=== PATIENT | female | born 1990 | race Caucasian/White ===

== ENCOUNTER → 2016-10-23 | Outpatient (CLI) | payer OTHER | END | disposition home or self-care (01) | LOC: C.PAPS 12:03 | PROVIDERS: ATTEND Physician Assistant | DX: Z12.4 Encounter for screening for malignant neoplasm of cervix (principal) ==

== ENCOUNTER 2022-05-01 02:39 | Inpatient (IN) ==
[2022-05-01] MEDS ORDERED: LIDOCAINE 1% LOCAL 20 ML VIAL INFIL PRN (05:31)
[2022-05-01] MEDS ORDERED: OXYTOCIN 30 UNITS/500 ML BAG IV PRN ×3 (05:31→11:34)
[2022-05-01] MEDS ORDERED: ceFAZolin 2000MG 2,000 MG/15 ML SYR IV SCH (06:00)
[2022-05-01] MEDS: LACTATED RINGER'S 1,000 ML IV PRN ×3 (06:09→11:16)
[2022-05-01 06:26] LABS: Hematocrit (blood only) 33.5 % (34.1-44.9); Hemoglobin 11.6 g/dl (12.0-16.0); Mean Corpuscular Hemoglobin 28.8 pg (25.0-34.0); Mean Corpuscular Hgb Conc 34.6 g/dL (32.0-36.0); Mean Corpuscular Volume 83.1 fL (80.0-100.0); Platelet Count 314 K/uL (130-400); RDW Coefficient of Variation 12.5 % (11.5-14.5); RDW Standard Deviation 37.8 fL (36.4-46.3); Red Blood Count 4.03 M/uL (3.93-5.22); White Blood Count 16.29 K/ul (4.8-10.8)
[2022-05-01] MEDS ORDERED: ONDANSETRON INJ 2 MG/ML 2 ML VIAL IV PRN ×3 (06:41→13:45)
[2022-05-01] MEDS ORDERED: diphenhydrAMINE 50 MG/ML VIAL IV PRN ×2 (06:41→12:45)
[2022-05-01] MEDS ORDERED: ePHEDrine sulfate 50 MG/ML AMP IV PRN ×2 (06:41→12:45)
[2022-05-01] MEDS ORDERED: fentaNYL 2MCG/ML ROPIVACAINE 1.25MG/ML 100 ML BAG EPI PRN (06:41)
[2022-05-01] MEDS ORDERED: NALOXONE HCL 0.4 MG/1 ML VIAL/CARP IV PRN ×2 (06:41→12:45)
[2022-05-01] MEDS ORDERED: NALOXONE HCL 1 MG in SODIUM CHLORIDE 0.9% 1000ML 1,000 ML IV PRN ×2 (06:41→12:45)
[2022-05-01] MEDS ORDERED: NALBUPHINE HCL INJ 10 MG/ML AMP IV PRN ×2 (06:41→12:45)
--- NOTE | 2022-05-01 06:41 | Anesthesiology Consultation ---
Date of Service May 01, 2022 Assessment & Plan ASA ASA2 Proposed Anesthesia Anesthesia Type: Labor Epidural Risk / Benefits Reviewed With: PT / POA / Parent / Guardian, Accepts Plan and Informed Consent Obtained History Height/Weight Height: 5 ft 11 in Weight: 89.358 kg Allergies Allergy/AdvReac Type Severity Reaction Status Date / Time No Known Drug Allergies Allergy Verified 04/28/22 12:24 Medications Home Medications Medication Instructions Recorded Confirmed Last Taken prenat.vits,lilibeth,[id number] 1 tab PO DAILY 05/20/21 04/28/22 Unknown Active Medications Generic Name Dose Route Start Last Admin Trade Name Freq PRN Reason Stop Dose Admin Lactated Ringer's 1,000 mls @ 125 mls/hr 05/01/22 05:31 05/01/22 07:16 Lr IV 05/03/22 05:30 125 mls/hr .Q8H PRN Infusion L&D Protocol Protocol Past Medical History Medical History History of chicken pox No active medical problems Exercise / Class Metabolic Activity II 4-5 Yardwork/Stairs/Walk up hill Past Family History Family History Grandmother (Paternal) Myocardial infarction Grandfather (Paternal) Alzheimer disease Denies family history of Ovarian cancer Prostate cancer Breast cancer Colorectal cancer Uterine cancer Past Surgical History Surgical History No pertinent past surgical history Past Anesthesia History No Hx of Anesthesia Complications and No Family Hx of Anesthesia Complications History of PONV No Hx of PONV and No Hx of Motion Sickness Social History Smoking Status: Never smoker Hx Alcohol Use: No Alcohol type: beer and wine Hx Substance Use: No Review of Systems denies fever/cough/ colds/ chest pain/ SOB/ SID denies SID Physical Exam Vital Signs Last Vital Signs Temp 36.8 C 05/01/22 06:06 Pulse 95 H 05/01/22 07:15 Resp 18 05/01/22 06:06 BP 124/75 05/01/22 07:15 Pulse Ox 99 05/01/22 07:15 ENMT Mouth: no TMJ abnormality and no dentition abnormality Thyromental Distance: > or= 3.5 Finger Breadths Mallampati Class: II Neck neck extension not limited Respiratory normal respiratory effort; no respiratory distress Auscultation: lungs clear to auscultation bilaterally Cardiovascular Rate/Rhythm: regular rate and regular rhythm Neurologic moves all extremities Psychiatric Orientation: alert and oriented x 3 Testing Laboratory Results 05/01/22 05:52 05/01/22 05:52
[2022-05-01] MEDS ORDERED: ePHEDrine sulfate 50 MG/ML AMP ONE (06:43)
[2022-05-01] MEDS ORDERED: fentaNYL citrate 100 MCG/2 ML VIAL ONE ×2 (06:44→13:03)
[2022-05-01] MEDS ORDERED: SODIUM CHLORIDE 0.9% INJ 10 ML VIAL ONE (06:44)
[2022-05-01] MEDS ORDERED: LIDOCAINE 2%/EPINEPHRINE 1:200,000 20 ML SDV ONE ×2 (06:44→12:35)
[2022-05-01] MEDS ORDERED: BUPIVACAINE 0.25% 30 ML VIAL ONE (06:44)
[2022-05-01] MEDS ORDERED: fentaNYL 2MCG/ML ROPIVACAINE 1.25MG/ML 100 ML BAG EPI ONE (06:45)
--- NOTE | 2022-05-01 07:19 | History & Physical Report ---
Date of Service May 01, 2022 Assessment & Plan (1) Supervision of normal first : Plan: Admit to L&D. EFM/toco. Labs. OK for epidural. Admission and Anticipated Discharge Date Admission Date: May 01, 2022 History of Present Illness Primary Care Provider: Manuel Aguilera DO 31yo @ 38 09/09, presented with ctx. No leaking, no vaginal bleeding. + movement. uncomplicated. 36w EFW 81%ile. Allergies Allergy/AdvReac Type Severity Reaction Status Date / Time No Known Drug Allergies Allergy Verified 04/28/22 12:24 Home Medications Medication Instructions Recorded Confirmed Type prenat.vits,lilibeth,xfk-[id number]-ycjkx 1 tab PO DAILY 05/20/21 04/28/22 History Patient History Medical History History of chicken pox No active medical problems Surgical History No pertinent past surgical history Family History Grandmother (Paternal) Myocardial infarction Grandfather (Paternal) Alzheimer disease Denies family history of Ovarian cancer Prostate cancer Breast cancer Colorectal cancer Uterine cancer Social History (Updated 09/30/21 @ 13:07 by Rosmery Gregory) Smoking Status: Never smoker Second Hand Exposure: No; Hx Alcohol Use: No Hx Substance Use: No Preferred Language: Luxembourgish Communication Ability: Effective Visual Impairment: No Limitations Hearing Ability: Normal Mail Carriers Supervisor Required: No Beliefs That Will Affect Care: None marital status: marital status details: Sanjeev Bansal (36) [phone] Current Living Situation: Spouse Current Living Situation Comment: lives with spouse, dog current occupational status: employed 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 How many Children do You have: 0 Other Information That Helps Us Care for You: No Feels Safe at Home: Yes Safety Concerns: Feels Safe At This Time Childhood Exposure to Second-Hand Smoke: No caffeine: Yes (tea sometimes, coffee maybe once a week) Dental Care, Regularly: Yes Physical Activity Frequency: 5-6 Times per Week Physical Activity Frequency Comment: runs and at home workouts Seatbelt Use: always Sunscreen Use: Yes (sometimes) Review of Systems All systems reviewed & are unremarkable except as noted in HPI & below Physical Exam Physical Exam: FHT Cat 1 [place] Q 2 SVE 5/100/-1 per RN Constitutional: WD/WN, vitals as above Respiratory: normal respiratory effort, lungs clear to auscultation no respiratory distress Cardiovascular: Rate/Rhythm: regular rate and regular rhythm Gastrointestinal (Abdomen): Inspection/Auscultation: abdomen normal to inspec tion Percussion/Palpation: abdomen soft; abdomen nontender Gravid. No s/s chorio or abruption. Skin: no rashes, warm and dry Psychiatric: A+Ox3, euthymic affect Results & Data ([facility]) Vital Signs (Past 12 Hours) Vital Signs Temp Pulse Resp BP Pulse Ox 05/01/22 07:15 95 H 124/75 99 05/01/22 07:13 85 116/73 05/01/22 07:11 90 127/81 05/01/22 07:10 86 100 05/01/22 07:09 86 132/80 05/01/22 07:07 81 125/79 05/01/22 07:05 87 131/82 100 05/01/22 07:03 86 129/79 05/01/22 07:01 82 130/78 05/01/22 07:00 85 99 05/01/22 06:55 83 100 05/01/22 06:50 92 H 100 05/01/22 06:06 36.8 C 68 18 131/80 05/01/22 02:54 36.9 C 80 20 145/85 H Coding Level of Care Code None Diagnoses Supervision of normal first Z34.00
[2022-05-01 07:20] LABS: Albumin Globulin Ratio 1.2 (0.9-2); Albumin Level 3.6 gm/dl (3.4-5.0); BUN Creatinine Ratio 16.7 (10-20); Bilirubin,Total 0.4 mg/dl (0.2-1.0); Calcium 9.1 mg/dl (8.5-10.1); Creatinine Clr Calc Pharmacy 119.8 ml/min; Est GFR (African American) 107.3 ml/min; Est GFR (Non-African American) 92.6 ml/min; Globulin 3.1 gm/dl (2.5-4.0); Potassium 4.1 mmol/L (3.5-5.1); Total Protein 6.7 gm/dl (6.0-8.3)
[2022-05-01] MEDS ORDERED: TERBUTALINE SULFATE 1 MG/ML VIAL SQ ONE (09:31)
--- NOTE | 2022-05-01 09:35 | Labor Progress Brief Note ---
Date of Service May 01, 2022 Subjective Patient is comfortable with epidural Assessment & Plan (1) with 38 completed weeks gestation: (2) Normal labor: Plan dysfunctional labor pattern but getting the job done. Has had two five minute decels since epidural with resolution. fluid clear at this time with arom. Will continue to monitor closely, see what contractions do. Admission and Anticipated Discharge Date Admission Date: May 01, 2022 Physical Exam Physical Exam: cx--9/100/0 arom--clear Immediately after arom, decel to the 70s for five minutes. Position changed, oxygen, fluids and SQ terb given. This then eventually resolved to the 130s. Patient had a 5 minute decel at about 7:30 right after the epidural as well. Variability min to moderate. toco--very irregular contraction pattern. Has long spaces between and then runs of contractions. Think this decel was secondary to a run of tachysystole. resolved with terb. Results & Data ([facility]) Vital Signs (Past 12 Hours) Vital Signs Temp Pulse Resp BP Pulse Ox 05/01/22 09:28 100 H 138/87 05/01/22 09:27 98 H 92 05/01/22 09:25 81 100 05/01/22 09:20 92 H 100 05/01/22 09:18 81 94 05/01/22 09:15 68 100 05/01/22 09:10 71 100 05/01/22 09:07 64 123/69 05/01/22 09:05 66 100 05/01/22 09:00 72 100 05/01/22 08:55 80 100 05/01/22 08:52 70 119/68 05/01/22 08:50 73 100 05/01/22 08:45 72 100 05/01/22 08:40 69 100 05/01/22 08:37 68 118/70 05/01/22 08:35 71 100 05/01/22 08:30 68 100 05/01/22 08:25 73 100 05/01/22 08:24 75 121/74 05/01/22 08:23 70 119/72 05/01/22 08:20 70 100 05/01/22 08:15 81 100 05/01/22 08:10 65 100 05/01/22 08:08 69 121/69 05/01/22 08:05 67 100 05/01/22 08:00 74 100 10/27/22 07:55 70 100 05/01/22 07:52 71 120/69 05/01/22 07:50 78 100 05/01/22 07:45 74 100 05/01/22 07:40 73 100 05/01/22 07:38 72 125/73 05/01/22 07:35 76 100 05/01/22 07:30 89 128/85 100 05/01/22 07:25 103 H 100 05/01/22 07:20 89 100 05/01/22 07:21 87 118/79 05/01/22 07:15 95 H 124/75 99 05/01/22 07:13 85 116/73 05/01/22 07:11 90 127/81 05/01/22 07:10 86 100 05/01/22 07:09 86 132/80 05/01/22 07:07 81 125/79 05/01/22 07:05 87 131/82 100 05/01/22 07:03 86 129/79 05/01/22 07:01 82 130/78 05/01/22 07:00 85 99 05/01/22 06:55 83 100 05/01/22 06:50 92 H 100 05/01/22 06:06 36.8 C 68 18 131/80 05/01/22 02:54 36.9 C 80 20 145/85 H Coding Level of Care Code None Diagnoses with 38 completed weeks gestation Z3A.38 Normal labor O80; Z37.9
--- NOTE | 2022-05-01 11:34 | Labor Progress Brief Note ---
Date of Service May 01, 2022 Subjective comfortable Assessment & Plan (1) Normal labor: Plan contractions have spaced. no change or descent in last couple of hours. ctx are likely not adequate. discussed the following options 1. continued expectant management--see if contractions spontaneously become better, srom so every exam increases risk for infection, may or may not ever happen without augmentation 2. start pit--start low, go slow, see if baby tolerates and can get better contractions. discussed if baby does not tolerate, will likely need c/s. discussed potential of another decel and may not come up this time. 3. controlled c/s now--always an option if concerned about tolerance, discussed if has decel and does not come up, might need stat c/s with general Discussed there has been no descent in station. May be because ctx not powerful enough or because baby won't fit through. Decels might be secondary to cpd, however, I think the last one from tachy systoleDid discuss that even if we get to 10cm, baby may not tolerate pushing resulting in c/s anyway. Just cannot know what will ultimately happen. Discussed the r/b of all. thought we did not need to do c/s at this point unless they wished to proceed with that. They have chosen pitocin. Admission and Anticipated Discharge Date Admission Date: May 01, 2022 Physical Exam Physical Exam: cx--essentially unchanged toco--q 2-5min efm--130s with mod variablity, accels present, no decels Results & Data ([facility]) Vital Signs (Past 12 Hours) Vital Signs Temp Pulse Resp BP Pulse Ox 05/01/22 11:25 88 100 05/01/22 11:22 83 133/76 05/01/22 11:20 89 100 05/01/22 11:18 84 92 05/01/22 11:15 80 100 05/01/22 11:10 83 100 05/01/22 11:07 88 129/79 05/01/22 11:05 81 97 05/01/22 11:00 37.1 C 84 20 100 05/01/22 10:58 81 92 05/01/22 10:55 81 100 05/01/22 10:52 84 119/69 05/01/22 10:50 84 100 05/01/22 10:45 87 100 05/01/22 10:40 86 100 05/01/22 10:38 85 117/69 05/01/22 10:35 84 100 05/01/22 10:30 76 100 05/01/22 10:25 87 100 05/01/22 10:22 89 116/64 05/01/22 10:20 93 H 100 05/01/22 10:18 91 H 92 05/01/22 10:15 91 H 100 05/01/22 10:10 88 100 05/01/22 10:07 89 125/68 05/01/22 10:05 87 100 05/01/22 10:00 85 100 05/01/22 09:55 91 H 100 05/01/22 09:52 90 124/63 05/01/22 09:50 98 H 100 05/01/22 09:45 91 H 100 05/01/22 09:40 37.0 C 92 H 20 100 05/01/22 09:38 90 133/84 05/01/22 09:35 85 100 05/01/22 09:30 88 100 05/01/22 09:28 100 H 138/87 05/01/22 09:27 98 H 92 05/01/22 09:25 81 100 05/01/22 09:20 92 H 100 05/01/22 09:18 81 94 05/01/22 09:15 68 100 05/01/22 09:10 71 100 05/01/22 09:07 64 123/69 05/01/22 09:05 66 100 05/01/22 09:00 72 100 05/01/22 08:55 80 100 05/01/22 08:52 70 119/68 05/01/22 08:50 73 100 05/01/22 08:45 72 100 05/01/22 08:40 69 100 05/01/22 08:37 68 118/70 05/01/22 08:35 71 100 05/01/22 08:30 68 100 05/01/22 08:25 73 100 05/01/22 08:24 75 121/74 05/01/22 08:23 70 119/72 05/01/22 08:20 70 100 05/01/22 08:15 81 100 05/01/22 08:10 65 100 05/01/22 08:08 69 121/69 05/01/22 08:05 67 100 05/01/22 08:00 74 100 05/01/22 07:55 70 100 05/01/22 07:52 71 120/69 05/01/22 07:50 78 100 05/01/22 07:45 74 100 05/01/22 07:40 73 100 05/01/22 07:38 72 125/73 05/01/22 07:35 76 100 05/01/22 07:30 89 128/85 100 05/01/22 07:25 103 H 100 05/01/22 07:20 89 100 05/01/22 07:21 87 118/79 05/01/22 07:15 95 H 124/75 99 05/01/22 07:13 85 116/73 05/01/22 07:11 90 127/81 05/01/22 07:10 86 100 05/01/22 07:09 86 132/80 05/01/22 07:07 81 125/79 05/01/22 07:05 87 131/82 100 05/01/22 07:03 86 129/79 05/01/22 07:01 82 130/78 05/01/22 07:00 85 99 05/01/22 06:55 83 100 05/01/22 06:50 92 H 100 05/01/22 06:06 36.8 C 68 18 131/80 05/01/22 02:54 36.9 C 80 20 145/85 H Coding Level of Care Code None Diagnoses Normal labor O80; Z37.9
--- NOTE | 2022-05-01 12:22 | Labor Progress Brief Note ---
Date of Service May 01, 2022 Subjective comfortable with epidural, some pressure Assessment & Plan (1) Normal labor: Plan Again discussed the situation. To get a more regular contraction pattern, would need to increase the pitocin but risking continued decels with doing that. Discussed one of these times may not come back up necessitating a stat c/s. They have decided to proceed with c/s. r/b/se of surgery discussed. consent reviewed and signed. Admission and Anticipated Discharge Date Admission Date: May 01, 2022 Physical Exam Physical Exam: cx--unchanged toco--continued dysfunctional pattern. had another run of 4 contractions right on top of one another and had a decel efm--had been 140s with mod variability, +accels, +scalp stim. decel lasted 3-4 minutes this time. recovered to 150s Results & Data ([facility]) Vital Signs (Past 12 Hours) Vital Signs Temp Pulse Resp BP Pulse Ox 05/01/22 12:15 85 100 05/01/22 12:10 88 100 05/01/22 12:08 89 130/77 05/01/22 12:05 82 100 05/01/22 12:04 91 H 93 05/01/22 12:00 92 H 100 05/01/22 11:55 90 92 05/01/22 11:52 89 128/76 05/01/22 11:50 91 H 100 05/01/22 11:45 81 100 05/01/22 11:40 84 100 05/01/22 11:37 82 125/77 05/01/22 11:35 83 100 05/01/22 11:30 84 100 05/01/22 11:25 88 100 05/01/22 11:22 83 133/76 05/01/22 11:20 89 100 05/01/22 11:18 84 92 05/01/22 11:15 80 100 05/01/22 11:10 83 100 05/01/22 11:07 88 129/79 05/01/22 11:05 81 97 05/01/22 11:00 37.1 C 84 20 100 05/01/22 10:58 81 92 05/01/22 10:55 81 100 05/01/22 10:52 84 119/69 05/01/22 10:50 84 100 05/01/22 10:45 87 100 05/01/22 10:40 86 100 10/27/22 10:38 85 117/69 05/01/22 10:35 84 100 05/01/22 10:30 76 100 05/01/22 10:25 87 100 05/01/22 10:22 89 116/64 05/01/22 10:20 93 H 100 05/01/22 10:18 91 H 92 05/01/22 10:15 91 H 100 05/01/22 10:10 88 100 05/01/22 10:07 89 125/68 05/01/22 10:05 87 100 05/01/22 10:00 85 100 05/01/22 09:55 91 H 100 05/01/22 09:52 90 124/63 05/01/22 09:50 98 H 100 05/01/22 09:45 91 H 100 05/01/22 09:40 37.0 C 92 H 20 100 05/01/22 09:38 90 133/84 05/01/22 09:35 85 100 05/01/22 09:30 88 100 05/01/22 09:28 100 H 138/87 05/01/22 09:27 98 H 92 05/01/22 09:25 81 100 05/01/22 09:20 92 H 100 05/01/22 09:18 81 94 05/01/22 09:15 68 100 05/01/22 09:10 71 100 05/01/22 09:07 64 123/69 05/01/22 09:05 66 100 05/01/22 09:00 72 100 05/01/22 08:55 80 100 05/01/22 08:52 70 119/68 05/01/22 08:50 73 100 05/01/22 08:45 72 100 05/01/22 08:40 69 100 05/01/22 08:37 68 118/70 05/01/22 08:35 71 100 05/01/22 08:30 68 100 05/01/22 08:25 73 100 05/01/22 08:24 75 121/74 05/01/22 08:23 70 119/72 05/01/22 08:20 70 100 05/01/22 08:15 81 100 05/01/22 08:10 65 100 05/01/22 08:08 69 121/69 05/01/22 08:05 67 100 05/01/22 08:00 74 100 05/01/22 07:55 70 100 05/01/22 07:52 71 120/69 05/01/22 07:50 78 100 05/01/22 07:45 74 100 05/01/22 07:40 73 100 05/01/22 07:38 72 125/73 05/01/22 07:35 76 100 05/01/22 07:30 89 128/85 100 05/01/22 07:25 103 H 100 05/01/22 07:20 89 100 05/01/22 07:21 87 118/79 05/01/22 07:15 95 H 124/75 99 05/01/22 07:13 85 116/73 05/01/22 07:11 90 127/81 05/01/22 07:10 86 100 05/01/22 07:09 86 132/80 05/01/22 07:07 81 125/79 05/01/22 07:05 87 131/82 100 05/01/22 07:03 86 129/79 05/01/22 07:01 82 130/78 05/01/22 07:00 85 99 05/01/22 06:55 83 100 05/01/22 06:50 92 H 100 05/01/22 06:06 36.8 C 68 18 131/80 05/01/22 02:54 36.9 C 80 20 145/85 H Coding Level of Care Code None Diagnoses Normal labor O80; Z37.9
[2022-05-01] MEDS ORDERED: CITRIC ACID/SODIUM CITRATE 15 ML UDC ONE (12:30)
[2022-05-01] MEDS ORDERED: MoRPHine SULFATE PF 1 MG/ML 10 ML AMP/VIAL ONE (12:35)
[2022-05-01] MEDS ORDERED: OXYTOCIN 10 UNITS/ML 10ML VIAL ONE ×3 (12:36)
[2022-05-01] MEDS ORDERED: NO NARCOTICS OR SEDATIVES SCH (12:45)
[2022-05-01] MEDS ORDERED: LACTATED RINGER'S 500 ML IV PRN (12:45)
[2022-05-01] MEDS ORDERED: MoRPHine SULFATE 2 MG/ML CARP IV PRN (12:45)
[2022-05-01] MEDS ORDERED: NALOXONE HCL 0.08 MG in SYRINGE 1.8 ML IV PRN (12:45)
[2022-05-01] MEDS ORDERED: DC INTRASPINAL MORPHINE SCH (12:45)
[2022-05-01] MEDS ORDERED: SODIUM CHLORIDE 0.9% 1000ML 1,000 ML IV SCH (12:45)
[2022-05-01] MEDS ORDERED: MoRPHine SULFATE PF 1 MG/ML 10 ML AMP/VIAL EPI ONE (13:15)
[2022-05-01] MEDS ORDERED: DIPHTHERIA/TETANUS/PERTUSSIS 0.5 ML SYR/VIAL IM ONE (13:45)
[2022-05-01] MEDS ORDERED: HYDROCORTISONE ACETATE 25 MG SUPP PR PRN (13:45)
[2022-05-01] MEDS ORDERED: SENNA 8.6 MG TAB PO PRN (13:45)
[2022-05-01] MEDS ORDERED: BENZOCAINE 20% AER SPR 82.5 GM CAN EXT PRN (13:45)
[2022-05-01] MEDS ORDERED: MAGNESIUM HYDROXIDE SUSP 30 ML UDC PO PRN (13:45)
[2022-05-01] MEDS ORDERED: LACTATED RINGER'S 1,000 ML IV SCH (13:45)
[2022-05-01 13:50] LABS: Base Excess Cord Venous Blood -4.8 mEq/L (-7.7-1.9); Cord Venous Blood HCO3 24 mmol/L (18.4-26.8); Cord Venous Blood PCO2 56 mmHg (30.4-57.2); Cord Venous Blood PO2 12 mmHg (14.1-43.3); Cord Venous Blood pH 7.23 (7.20-7.44); O2 Saturation Cord Venous Bld < 60.0 % (<68)
[2022-05-01 13:51] LABS: CO2 Cord Arterial Blood 69 mmHg (39.1-73.5); HCO3 Cord Arterial Blood 26 mmol/L (19.7-28.5); Oxygen Sat Cord Arterial Blood < 60.0 % (<60); PO2 Cord Arterial Blood 9 mmHg (4.1-31.7); pH Cord Arterial Blood 7.18 (7.1-7.38)
--- NOTE | 2022-05-01 13:53 | Operative Report ---
PG Post Operative Report Pre & Post Diagnosis Operation Date: 05/01/22 13:00 Pre-Op Diagnosis: IUP at 38 4/7 weeks, Failure to progress; non reassuring heart rate; 38 weeks gestation Post-Op Diagnosis: IUP at 38 4/7 weeks, Failure to progress; non reassuring heart rate; 38 weeks gestation I identified the patient and participated in the time-out.: Yes Procedure Operation Date: 05/01/22 13:00 Actual Procedures p Primary low transverse Section in LD living male child at 1313 - Karely Johnson MD, FACOG Surgeon Karely Johnson MD, FACOG Welding Supervisor Eliezer Rojas Estimated Blood Loss 550 Findings Consistent with Post-Op Diagnosis viable male infant in cephalic position, oa, very molded. [id number]. uterus, tubes, ovaries normal bilaterally Fluids 800cc Specimens none Drains logan Anesthesia Type Labor Epidural Complications none Disposition Accompanied Patient To Recovery: Yes Disposition: L&D Indications Patient is a 31yowf with iup at 38 4/7 weeks who presented to labor and delivery in labor. She progressed in labor and at 7cm received epidural. AT 9cm had arom for clear fluid. Patient never had a good contraction pattern and infact had several runs of tachysystole that induced decelerations, all of which recovered with recussictation. However, she never progressed beyond 9cm and we were not able to use pitocin for augmentation because of response. Description of Procedure The patient was taken to the operating room where she was identified verbally and by bracelet. She was placed on the operating table where her epidural anesthetic was dosed by anesthesia. She was then placed in the supine position with a leftward tilt. A Logan catheter had been placed sterilely. the patient was prepped and draped in a normal standard fashion. the anesthetic was tested and found to be adequate. A time-out was held, identifying correct patient, procedure, positioning and preoperative antibiotics. There were no concerns. A Pfannenstiel skin incision was made with a knife and taken down to the underlying layer of fascia with the knife and Bovie electrocautery. Bleeding was attended to with the Bovie. The fascia was incised in the midline with the knife and taken out laterally with scissors. The superior edge of the fascial incision was grasped, elevated and the underlying layer of rectus muscle was taken off bluntly and with scissors. In a similar fashion, the inferior edge of the fascial incision was grasped, elevated and the underlying layer of rectus muscle was taken off bluntly and with scissors. The muscles were bluntly in the midline. The peritoneum was entered bluntly. The incision was then stretched. The bladder blade was placed. The vesicouterine peritoneum was identified, entered with scissors and taken out laterally with scissors. The bladder flap was created digitally A hysterotomy incision was scored with a knife and the incision was stretched superiorly and inferiorly with the labor operator's fingers. The operators hand was placed into the incision and the head was delivered atraumatically. No nuchal cord. The nose and mouth were bulb suctioned. the rest of the infant was then delivered without difficulty. The nose and mouth were again bulb suctioned. The cord was clamped and cut and the infant was then handed off to the awaiting heel sorter for drying and attention. Cord blood and segment were obtained. The placenta was Manually extracted. The uterus was exteriorized and cleared of all clot and debris with moistened laparotomy sponges. The hysterotomy incision was repaired in two layers, the first in a running locked layer, the second in an imbricating layer. Hemostasis was noted to be good. Posterior cul-de-sac was irrigated and cleared of all clot and debris. The hysterotomy incision was again inspected and found to be hemostatic. the uterus was reinteriorized. Hysterotomy incision was again inspected and found to be hemostatic. Rectus muscles were reapproximated with several interrupted stitches of 0 Vicryl. The fascia was then reapproximated with 0 Vicryl starting at the edges and meeting in the midline. The subcuticular tissues were copiously irrigated and bleeding was attended to with cautery. The skin was then closed with 4-0 Vicryl in a subcuticular fashion. All sponge, lap and needle counts were correct x 2. The patient tolerated the procedure well and was taken to the recovery room in stable condition. I attest to the content of the Intraoperative Record and any orders documented therein. Any exceptions are noted below. OB Procedure Charges 79323
--- NOTE | 2022-05-01 14:23 | Anesthesiology Progress Note ---
Date of Service May 01, 2022 Anesthesia Post Procedure Vital Signs Vital Signs: Temp Pulse Resp BP Pulse Ox 05/01/22 14:15 18 05/01/22 14:05 20 05/01/22 13:55 20 05/01/22 13:45 37.0 C 20 05/01/22 14:20 99 H 99 05/01/22 14:17 103 H 125/80 05/01/22 14:15 103 H 99 05/01/22 14:10 95 H 99 05/01/22 14:07 99 H 113/65 05/01/22 14:05 94 H 98 05/01/22 14:00 98 H 97 05/01/22 13:58 121 H 120/79 05/01/22 13:55 89 96 05/01/22 13:53 93 H 131/71 05/01/22 13:50 98 H 98 05/01/22 13:46 200 H 191/133 H 05/01/22 13:45 102 H 98 05/01/22 12:46 100 05/01/22 12:46 86 05/01/22 12:46 79 93 05/01/22 12:41 79 100 05/01/22 12:36 90 100 05/01/22 12:37 75 128/74 05/01/22 12:30 87 100 05/01/22 12:25 78 100 05/01/22 12:23 82 128/81 05/01/22 12:20 87 100 05/01/22 12:19 95 H 90 05/01/22 12:15 85 100 05/01/22 12:10 88 100 05/01/22 12:08 89 130/77 05/01/22 12:05 82 100 05/01/22 12:04 91 H 93 05/01/22 12:00 92 H 100 05/01/22 11:55 90 92 05/01/22 11:52 89 128/76 05/01/22 11:50 91 H 100 05/01/22 11:45 81 100 05/01/22 11:40 84 100 05/01/22 11:37 82 125/77 05/01/22 11:35 83 100 05/01/22 11:30 84 100 05/01/22 11:25 88 100 05/01/22 11:22 83 133/76 05/01/22 11:20 89 100 05/01/22 11:18 84 92 05/01/22 11:15 80 100 05/01/22 11:10 83 100 05/01/22 11:07 88 129/79 05/01/22 11:05 81 97 05/01/22 11:00 37.1 C 84 20 100 05/01/22 10:58 81 92 05/01/22 10:55 81 100 05/01/22 10:52 84 119/69 05/01/22 10:50 84 100 05/01/22 10:45 87 100 05/01/22 10:40 86 100 05/01/22 10:38 85 117/69 05/01/22 10:35 84 100 05/01/22 10:30 76 100 05/01/22 10:25 87 100 05/01/22 10:22 89 116/64 05/01/22 10:20 93 H 100 05/01/22 10:18 91 H 92 05/01/22 10:15 91 H 100 05/01/22 10:10 88 100 05/01/22 10:07 89 125/68 05/01/22 10:05 87 100 05/01/22 10:00 85 100 05/01/22 09:55 91 H 100 05/01/22 09:52 90 124/63 05/01/22 09:50 98 H 100 05/01/22 09:45 91 H 100 05/01/22 09:40 37.0 C 92 H 20 100 05/01/22 09:38 90 133/84 05/01/22 09:35 85 100 05/01/22 09:30 88 100 05/01/22 09:28 100 H 138/87 05/01/22 09:27 98 H 92 05/01/22 09:25 81 100 05/01/22 09:20 92 H 100 05/01/22 09:18 81 94 05/01/22 09:15 68 100 05/01/22 09:10 71 100 05/01/22 09:07 64 123/69 05/01/22 09:05 66 100 05/01/22 09:00 72 100 05/01/22 08:55 80 100 05/01/22 08:52 70 119/68 05/01/22 08:50 73 100 05/01/22 08:45 72 100 05/01/22 08:40 69 100 05/01/22 08:37 68 118/70 05/01/22 08:35 71 100 05/01/22 08:30 68 100 05/01/22 08:25 73 100 05/01/22 08:24 75 121/74 05/01/22 08:23 70 119/72 05/01/22 08:20 70 100 05/01/22 08:15 81 100 05/01/22 08:10 65 100 05/01/22 08:08 69 121/69 05/01/22 08:05 67 100 05/01/22 08:00 74 100 05/01/22 07:55 70 100 05/01/22 07:52 71 120/69 05/01/22 07:50 78 100 05/01/22 07:45 74 100 05/01/22 07:40 73 100 05/01/22 07:38 72 125/73 05/01/22 07:35 76 100 05/01/22 07:30 89 128/85 100 05/01/22 07:25 103 H 100 05/01/22 07:20 89 100 05/01/22 07:21 87 118/79 05/01/22 07:15 95 H 124/75 99 05/01/22 07:13 85 116/73 05/01/22 07:11 90 127/81 05/01/22 07:10 86 100 05/01/22 07:09 86 132/80 05/01/22 07:07 81 125/79 05/01/22 07:05 87 131/82 100 05/01/22 07:03 86 129/79 05/01/22 07:01 82 130/78 05/01/22 07:00 85 99 05/01/22 06:55 83 100 05/01/22 06:50 92 H 100 05/01/22 06:06 36.8 C 68 18 131/80 05/01/22 02:54 36.9 C 80 20 145/85 H Transfer of Care Handoff Completed per policy Notes Mental Status: alert / awake / arousable and participated in evaluation Patient Amnestic to Procedure: Yes Nausea / Vomiting: adequately controlled Pain: adequately controlled Airway Patency, RR, SpO2: stable & adequate BP & HR: stable & adequate Hydration State: stable & adequate Anesthetic Complications: no major complications apparent and Pt Satisfied with anesthetic care
--- NOTE | 2022-05-01 14:24 | Anesthesia Procedure Note ---
Date of Service May 01, 2022 Anesthesia Post Epidural Note Vital Signs Vital Signs: Temp Pulse Resp BP Pulse Ox 37.0 C 99 H 18 125/80 99 05/01/22 13:45 05/01/22 14:20 05/01/22 14:15 05/01/22 14:17 05/01/22 14:20 Notes Mental Status: alert / awake / arousable and participated in evaluation Nausea / Vomiting: adequately controlled Pain: adequately controlled Airway Patency, RR, SpO2: stable & adequate BP & HR: stable & adequate Hydration State: stable & adequate Neuraxial Anesthesia: was administered and sensory block resolved Anesthetic Complications: no major complications apparent and Pt Satisfied with anesthetic care Epidural: Removed without complications and With tip intact
[2022-05-01] MEDS: OXYTOCIN 20 UNITS in LACTATED RINGER'S 1,000 ML IV SCH ×2 (15:09→23:50)
[2022-05-01] MEDS: KETOROLAC 30 MG/ML VIAL IV PRN (15:42)
[2022-05-01] MEDS: SIMETHICONE 80 MG CHEW PO SCH ×2 (17:04→20:39)
[2022-05-01] MEDS: DOCUSATE SODIUM 100 MG CAP PO SCH (20:39)
[2022-05-02] MEDS: KETOROLAC 30 MG/ML VIAL IV PRN (05:24)
[2022-05-02] MEDS ORDERED: CITRIC ACID/SODIUM CITRATE 15 ML UDC PO SCH (06:00)
[2022-05-02] MEDS ORDERED: ceFAZolin 2000MG 2,000 MG/15 ML SYR IV SCH (06:00)
--- NOTE | 2022-05-02 06:02 | Obstetrical Progress Note ---
Date of Service <Betina Tee - Last Filed: 05/02/22 06:59> May 02, 2022 Assessment & Plan <Betina Tee DO - Last Filed: 05/02/22 06:59> (1) Status post section: plan for d/c Arredondo, do a trial of OOB and ambulation and then progress diet as tolerated <Karely Johnson MD, FACOG - Last Filed: 05/02/22 07:04> (1) Status post section: Subjective <Betina Tee - Last Filed: 05/02/22 06:59> Nikki is a 31 y/o female who is POD #1 following delivery at 38 3/7 weeks. She reports feeling well overall this morning. Mild abdominal cramping,pain well managed on analgesics. Arredondo is still in place. Was a little nausea overnight, has improved this morning. Has not been out of bed yet. Is passing gas, no bowel movement. Has some persistent lochia with some improvement this morning. Currently . Review of Systems Denies fever, chills, sweats Denies shortness of breath, difficulty breathing, chest pain, palpitations, chest pressure. Denies breast pain. Denies dysuria. Denies headache or changes in vision. Physical Exam <Betina Tee - Last Filed: 05/02/22 06:59> General: Alert, oriented. No acute distress. Cardiac: Regular rate and rhythm, no murmurs/rubs/gallops. Respiratory: Clear to auscultation bilaterally a/p, no wheezes/rales/rhonchi. No increased work of breathing. Symmetrical chest rise. No respiratory distress. Abdomen: Soft, nontender, nondistended. Uterus: Uterine fundus firm, palpable 2 cm below umbilicus. Surgical dressing in place, clean and dry. Lower Extremities: No lower extremity edema or swelling. No deep calf pain. Ibrahima's negative bilaterally. Results & Data ([facility]) <Betina Tee - Last Filed: 05/02/22 06:59> Vital Signs (Past 12 Hours) Vital Signs Temp Pulse Resp BP Pulse Ox O2 Del Method 05/02/22 04:00 18 97 05/02/22 00:00 36.6 C 67 16 108/71 97 Room Air 05/02/22 03:05 16 99 05/02/22 02:00 16 99 05/02/22 01:00 16 98 05/02/22 00:00 18 98 05/01/22 23:00 16 97 05/01/22 22:10 16 99 05/01/22 21:00 16 99 05/01/22 20:00 16 98 05/01/22 19:15 16 96 05/01/22 19:19 36.9 C 72 18 116/71 98 Room Air 05/01/22 18:19 16 99 <Karely Johnson MD, FACOG - Last Filed: 05/02/22 07:04> Co-Signing Physician Notes Resident Physician Supervision Note: I interviewed and examined the patient. Discussed with Dr. Tee and agree with findings and plan as documented in the note. Any exceptions or clarifications are listed here: Doing well. Routine pod #1 care. Documented By: Karely Johnson MD, FACOG Resident Activity Tracking <Betina Tee, - Last Filed: 05/02/22 06:59> Resident Involvement: Resident Care Provided Care Provided: OB Delivery (Post )
[2022-05-02] MEDS ORDERED: MEPERIDINE HCL 50 MG/ML CARP IV PRN (06:45)
[2022-05-02] MEDS ORDERED: KETOROLAC 30 MG/ML VIAL IV PRN (06:45)
[2022-05-02] MEDS ORDERED: diphenhydrAMINE Capsule 25 MG CAP PO PRN (06:45)
[2022-05-02] MEDS ORDERED: diphenhydrAMINE 50 MG/ML VIAL IV PRN (06:45)
[2022-05-02] MEDS ORDERED: oxyCODONE/ACETAMINOPHEN 5mg/325mg TAB PO PRN (06:45)
[2022-05-02] MEDS ORDERED: PROMETHAZINE HCL 25 MG in SODIUM CHLORIDE 0.9% 50 ML IV PRN (06:45)
[2022-05-02 07:47] LABS: Basophils # (auto) 0.03 K/uL (0-0.2); Basophils % (auto) 0.2 %; Eosinophils # (auto) 0.05 K/uL (0-0.50); Eosinophils % (auto) 0.4 %; Hematocrit (blood only) 29.4 % (34.1-44.9); Hemoglobin 9.9 g/dl (12.0-16.0); Immature Granulocytes # (auto) 0.05 K/uL (0.00-0.02); Immature Granulocytes % (auto) 0.4 %; Lymphocytes # (auto) 1.42 K/uL (1.2-3.4); Lymphocytes % (auto) 10.5 %; Mean Corpuscular Hemoglobin 28.8 pg (25.0-34.0); Mean Corpuscular Hgb Conc 33.7 g/dL (32.0-36.0); Mean Corpuscular Volume 85.5 fL (80.0-100.0); Mean Platelet Volume 11.8 fL (9.4-12.3); Monocytes # (auto) 0.75 K/uL (0.24-0.82); Monocytes % (auto) 5.5 %; Neutrophils # (auto) 11.24 K/uL (1.4-6.5); Platelet Count 224 K/uL (130-400); RDW Coefficient of Variation 12.8 % (11.5-14.5); RDW Standard Deviation 39.2 fL (36.4-46.3); Red Blood Count 3.44 M/uL (3.93-5.22); White Blood Count 13.54 K/ul (4.8-10.8)
[2022-05-02] MEDS: FERROUS SULFATE 325 MG TAB PO SCH (08:30)
[2022-05-02] MEDS: DOCUSATE SODIUM 100 MG CAP PO SCH ×2 (08:30→21:45)
[2022-05-02] MEDS: SIMETHICONE 80 MG CHEW PO SCH ×4 (08:30→21:45)
[2022-05-02] MEDS: PRENATAL VITAMIN 1 TAB PO SCH (08:30)
[2022-05-02] MEDS: IBUPROFEN 600 MG TAB PO PRN ×4 (09:36→21:46)
[2022-05-02] MEDS ORDERED: bisacodyL 5 MG TABEC PO SCH (20:00)
[2022-05-03] MEDS: IBUPROFEN 600 MG TAB PO PRN ×3 (04:38→21:01)
--- NOTE | 2022-05-03 05:51 | Obstetrical Progress Note ---
Date of Service <Betina Tee - Last Filed: 05/03/22 06:21> May 03, 2022 Assessment & Plan <Betina Tee - Last Filed: 05/03/22 06:21> (1) Status post section: Arredondo is out, continue OOB and ambulation and progress diet as tolerated <Coby Espinoza MD, FACOG - Last Filed: 05/03/22 07:58> (1) Status post section: Day #:: 2 Subjective <Betina Tee - Last Filed: 05/03/22 06:21> Nikki is a 31 y/o female who is POD #2 following delivery at 38 3/7 weeks. She reports feeling well overall this morning. Mild abdominal cramping,pain well managed on analgesics. Arredondo is out and she is voiding. Tolerating regular diet. Has been able to ambulate. Is passing gas, no bowel movement. Has some persistent lochia with some improvement this morning. Currently . Review of Systems Denies fever, chills, sweats Denies shortness of breath, difficulty breathing, chest pain, palpitations, chest pressure. Denies breast pain. Denies dysuria. Denies headache or changes in vision. Physical Exam <Betina Tee - Last Filed: 05/03/22 06:21> General: Alert, oriented. No acute distress. Cardiac: Regular rate and rhythm, no murmurs/rubs/gallops. Respiratory: Clear to auscultation bilaterally a/p, no wheezes/rales/rhonchi. No increased work of breathing. Symmetrical chest rise. No respiratory distress. Abdomen: Soft, nontender, nondistended. Uterus: Uterine fundus firm, palpable 2 cm below umbilicus. Surgical dressing in place, clean and dry. Lower Extremities: No lower extremity edema or swelling. No deep calf pain. Ibrahima's negative bilaterally. Results & Data ([facility]) <Betina Tee - Last Filed: 05/03/22 06:21> Vital Signs (Past 12 Hours) Vital Signs Temp Pulse Resp BP Pulse Ox O2 Del Method 05/02/22 23:25 36.4 C L 62 18 121/78 05/02/22 20:00 36.5 C 73 18 126/79 98 Room Air <Coby Espinoza MD, FACOG - Last Filed: 05/03/22 07:58> Co-Signing Physician Notes Resident Physician Supervision Note: I was present with Dr. Tee during the history and exam. I discussed the case with the resident and agree with the findings and plan as documented in the note. Any exceptions or clarifications are listed here: stable doing well. incision c/d/i, abd soft nt ff 2 down, nt calves. pod#2 routine care. Documented By: Coby Espinoza MD, FACOG Resident Activity Tracking <Betina Tee, DO - Last Filed: 05/03/22 06:21> Resident Involvement: Resident Care Provided Care Provided: OB Delivery (Post )
[2022-05-03 06:27] LABS: Hematocrit (blood only) 27.6 % (34.1-44.9); Hemoglobin 9.2 g/dl (12.0-16.0)
[2022-05-03] MEDS: FERROUS SULFATE 325 MG TAB PO SCH (08:10)
[2022-05-03] MEDS: DOCUSATE SODIUM 100 MG CAP PO SCH ×2 (08:10→21:02)
[2022-05-03] MEDS: PRENATAL VITAMIN 1 TAB PO SCH (08:10)
[2022-05-03] MEDS: SIMETHICONE 80 MG CHEW PO SCH ×4 (08:10→21:02)
[2022-05-03] MEDS ORDERED: bisacodyL 10 MG SUPP PR PRN (13:45)
[2022-05-04] MEDS: SIMETHICONE 80 MG CHEW PO SCH (08:05)
[2022-05-04] MEDS: PRENATAL VITAMIN 1 TAB PO SCH (08:05)
[2022-05-04] MEDS: FERROUS SULFATE 325 MG TAB PO SCH (08:05)
[2022-05-04] MEDS: DOCUSATE SODIUM 100 MG CAP PO SCH (08:05)
--- NOTE | 2022-05-04 08:31 | Obstetrical Progress Note ---
Date of Service May 04, 2022 Assessment & Plan (1) Status post section: Postop day #3 from section the patient is doing well ambulating well tolerating oral diet pain is well controlled. Incision is examined found to be clean dry and Intact there is no extremity pain patient is ready for discharge Subjective Ambulation: ambulating normally Voiding: no voiding problems Passing Gas:: Yes Diet Tolerance:: regular diet Lochia:: Small Physical Exam Constitutional WD/WN, vitals as above well developed and well nourished Respiratory normal respiratory effort; no respiratory distress, no retractions and does not use accessory muscles Cardiovascular RRR, no murmur, no edema Chest (Breasts) normal inspection/palpation of breasts Breast: normal inspection of breasts, normal inspection of axillae, normal palpation of breasts and normal palpation of axillae Gastrointestinal (Abdomen) normal bowel sounds, soft, nontender, no hepatosplenomegaly Neurologic awake; not confused Results & Data ([facility]) Vital Signs (Past 12 Hours) Vital Signs Temp Pulse Resp BP Pulse Ox O2 Del Method 05/03/22 23:45 98.2 F 70 16 137/87 98 Room Air
--- NOTE | 2022-05-06 01:03 | Discharge Summary (DS) ---
DATE OF ADMISSION: 05/01/2022. DATE OF DISCHARGE: 05/04/2022. ADMITTING DIAGNOSIS: Active labor. DISCHARGE DIAGNOSES: 1. Active labor. 2. Failure to progress. 3. Nonreassuring heart testing. PROCEDURES: Primary low transverse section. HISTORY: The patient is a 31-year-old 1, para 0 at 38 and 3/7 weeks who presented with contr actions, no leaking or vaginal bleeding. Good movement. The is uncomplicated. The 36-week estimated weight was in the 81st percentile. She walked and showed cervical change to 5 cm dilated, and so was admitted. For the rest of the patient's detailed history and physical, larry [place] see her history and physical. ASSESSMENT: This is an intrauterine at 38 and 3/7 weeks in active labor. HOSPITAL COURSE: The patient was admitted early in the morning on 05/01/2022. I took over her care at 8:30 on 05/01/2022. She had a dysfunctional labor pattern, but had progressed spontaneously in lab or. At 09:30, she underwent AROM for clear fluid and immediately after AROM had a decel to the 70s fo r 5 minutes. Position change to oxygen, fluids and subcutaneous terbutaline were given. This then ev entually resolved to the 130s. The patient had had a 5-minute decels at 7:30 right after the epidura l as well. She had a very irregular contraction pattern with long spacing between contractions and t hen run of contractions. I think the decels that she had at 9:30 was secondary to run of tachysystol e, this resolved with terbutaline. We continued to monitor the patient. Her cervix remained essenti ally unchanged, but likely she was not having great contractions as they had spaced after the terbuta line. We had discussed the options of continued expectant management starting careful Pitocin or con trolled section secondary relative intolerance, but also for failure to progress. The process of deciding and making decisions, the patient had another run of 4 contractions, right on top of another and had a decel that lasted 3-4 minutes to the 70s, which recovered to the 150s. At this point in time, the couple decided to proceed with delivery. The patient underwent a primary low transverse section without difficulty to deliver a viabl e male infant in cephalic presentation, occiput anterior very molded, Apgars 8 and 9. Normal uterus, tubes and ovaries were noted bilaterally. No cord was appreciated. The patient's postoperative course was uncomplicated. She tolerated a regular diet, ambulated withou t difficulty, voided after the removal of her Arredondo catheter and had her pain well controlled with or al pain medications. The patient was discharged home on postoperative day #3 from her secti on, doing quite well, to follow up in 6 weeks for visit. Job ID: [id number]
== END 2022-05-04 12:15 | disposition home or self-care (01) | DRG 788 ==
LOC: OPB 02:39 → 4S1 02:43 → 4E2 16:50